=== PATIENT | male | born 1965 | race Two or more races ===

== ENCOUNTER 2018-12-30 12:51 | Emergency (ER) | payer MEDICAID ==
[~2018-12-30] VITALS: Ht 172.7 cm; Wt 81.6 kg
--- NOTE | 2018-12-30 13:00 | NUR ---
[id number], C/O RIGHT 3RD AND 4TH FINGER PAIN S/P TRIPPED AND FALL, -KO. PATIENT A/OX4, ATTACHED TO THE [employer]. BP ELEVATED. RIGHT HAND BANDAGE OPEN TO AIR 3RD AND 4TH FINGER SOME BONES EXPOSED. ABHAY DELGADO AT BEDSIDE.
[2018-12-30] MEDS ORDERED: ONDANSETRON HCL/PF 4 MG/2 ML VIAL ONE (13:11)
[2018-12-30] MEDS ORDERED: MORPHINE SULFATE INJ 4 MG/ML DISP.SYRIN ONE ×2 (13:11→13:50)
[2018-12-30] MEDS ORDERED: LIDOCAINE 1% INJ 50 ML MDV IJ ONE (13:17)
[2018-12-30] MEDS ORDERED: TDAP [DIPH/PERTUSSIS/TET] 0.5 ML VIAL IM ONE ×2 (13:18→13:30)
[2018-12-30] MEDS ORDERED: MORPHINE SULFATE INJ 2 MG/ML DISP.SYRIN IM ONE (13:30)
[2018-12-30] MEDS ORDERED: LIDOCAINE HCL/PF 1% 30 ML VIAL TP ONE (13:30)
[2018-12-30] MEDS ORDERED: IV NS 0.9% 1,000 ML BAG IV ONE (13:30)
[2018-12-30] MEDS ORDERED: CEFAZOLIN 1 GM in IV D5W 50 ML IV ONE (13:30)
[2018-12-30] MEDS ORDERED: ONDANSETRON HCL/PF 4 MG/2 ML VIAL IV ONE (13:30)
--- NOTE | 2018-12-30 13:38 | NUR ---
DR. MAYA AND ABHAY DELGADO AT BEDSIDE, REDUCED THE DISLOCATION ON RIGHT 3RD AND 4TH FINGER. CALLED XRAY FOR REPEAT.
--- NOTE | 2018-12-30 14:17 | NUR ---
PAGED DR OLMSTEAD
[2018-12-30] MEDS ORDERED: MORPHINE SULFATE INJ 2 MG/ML DISP.SYRIN IV ONE (14:30)
--- NOTE | 2018-12-30 16:20 | NUR ---
PATIENT RECEIVED STITCHES FROM [facility].
--- NOTE | 2018-12-30 16:56 | NUR ---
SPLINT PROVIDED. PATIENT A/OX4, BREATHING EVEN AND UNLABORED, NO SOB NOTED. PATIENT C/O MILD PAIN, BUT TOLERABLE AT THIS TIME. IV removed. Catheter intact and site benign. Pressure and 4x4 applied to site. No bleeding noted.Patient discharged to home in stable condition. Written and verbal after care instructions given. Patient verbalizes understanding of instruction. will be driving the patient home.
[2018-12-30 16:57] VITALS: BP 152/92
== END 2018-12-30 16:58 | disposition home or self-care (01) ==
LOC: ER 12:55
DX: S63.282A Dislocation of proximal interphalangeal joint of right middle finger, initial encounter (principal); S63.284A Dislocation of proximal interphalangeal joint of right ring finger, initial encounter; S61.212A Laceration without foreign body of right middle finger without damage to nail, initial encounter; S61.214A Laceration without foreign body of right ring finger without damage to nail, initial encounter; I10 Essential (primary) hypertension; I25.2 Old myocardial infarction; Z95.818 Presence of other cardiac implants and grafts; W01.0XXA Fall on same level from slipping, tripping and stumbling without subsequent striking against object, initial encounter; Y93.89 Activity, other specified; Y92.89 Other specified places as the place of occurrence of the external cause; Y99.8 Other external cause status
CPT/HCPCS: 12002; 26770 ×2; 73110; 73130 ×2; 90471; 90715; 96365; 96375; 99284; A6403 ×3; J0690; J2270 ×2; J2405; J3490 ×2; J7030; J7060

== ENCOUNTER 2022-12-20 17:23 | Emergency (ER) | payer MEDICAID, OTHER ==
[~2022-12-20] VITALS: Ht 172.7 cm; Wt 86.2 kg
[2022-12-20 18:50] LABS: BASOPHILS # (AUTO) 0.1 K/uL (0.0-0.2); BASOPHILS % (AUTO) 0.6 % (0.0-2.0); EOSINOPHILS # (AUTO) 0.3 K/uL (0.0-0.7); EOSINOPHILS % (AUTO) 3.5 % (0.0-6.0); HEMATOCRIT 35 % (39-51); HEMOGLOBIN 11.8 g/dL (13.5-17.5); LYMPHOCYTES # (AUTO) 3.1 K/uL (0.8-4.8); LYMPHOCYTES % (AUTO) 31.9 % (20.0-44.0); MEAN CORPUSCULAR HEMOGLOBIN 32 PG (26.0-33.0); MEAN CORPUSCULAR HGB CONC 34 g/dl (31.0-36.0); MEAN CORPUSCULAR VOLUME 93 fL (80-96); MONOCYTES # (AUTO) 0.9 K/uL (0.1-1.30); MONOCYTES % (AUTO) 9.3 % (2.0-12.0); NEUTROPHILS # (AUTO) 5.3 K/uL (1.8-8.9); NEUTROPHILS % (AUTO) 54.7 % (43.0-81.0); RED BLOOD CELL COUNT(AUTO) 3.75 MIL/uL (4.5-6.0); RED CELL DISTRIBUTION WIDTH 13.7 % (11.5-15.0); WHITE BLOOD COUNT (AUTO) 9.6 K/uL (4.3-11.0)
[2022-12-20 19:18] LABS: ALANINE AMINOTRANSFERASE 23 U/L (12-78); ALBUMIN 2.9 g/dL (3.4-5.0); ALKALINE PHOSPHATASE 65 U/L (46-116); ASPARTATE AMINOTRANSFERASE 15 U/L (15-37); BILIRUBIN,DIRECT 0.1 mg/dL (0.0-0.2); BILIRUBIN,TOTAL 0.3 mg/dL (0.2-1.0); CALCIUM, SERUM 8.1 mg/dL (8.5-10.1); CARBON DIOXIDE 25 mmol/L (21-32); CHLORIDE 109 mmol/L (98-107); CREATININE 1.2 mg/dL (0.6-1.3); GLUCOSE 82 mg/dL (74-106); POTASSIUM 4.3 mmol/L (3.5-5.1); SODIUM SERUM 140 mmol/L (136-145); TOTAL PROTEIN, SERUM 5.9 g/dL (6.4-8.2); UREA NITROGEN, BLOOD 21 mg/dL (7-18)
[2022-12-20 19:37] LABS: PLATELET COUNT (AUTO) 231 K/uL (150-450)
[2022-12-20 20:44] VITALS: BP 109/76; TEMP 98.1; O2SAT 99
== END 2022-12-20 20:44 | disposition home or self-care (01) ==
LOC: ER 17:40
DX: R55 Syncope and collapse (principal); I10 Essential (primary) hypertension
CPT/HCPCS: 36415; 71045-TC; 80048-TC; 80076-TC; 84484-TC; 85025-TC